=== PATIENT | female | born 1980 | race Caucasian/White ===

== ENCOUNTER 2019-12-15 12:07 | Emergency (ER) | payer OTHER ==
[~2019-12-15] VITALS: Ht 157.5 cm; Wt 76.2 kg
[2019-12-15 12:16] VITALS: BP 137/104
--- NOTE | 2019-12-15 13:09 | NUR ---
39/F BIB SELF C/O LEFT EAR PAIN 8/10 X3 DAYS. Pt cleaned ear "a little too much" on Saturday. Left ear pain has been getting worse. Per pt she always has issues with ears.
--- NOTE | 2019-12-15 13:32 | NUR ---
Patient being evaluated by REBA FLORES at bedside.
[2019-12-15 13:39] VITALS: BP 155/83
--- NOTE | 2019-12-15 13:39 | NUR ---
Patient discharged with v/s stable. Written and verbal after care instructions given and explained. Patient alert, oriented and verbalized understanding of instructions. Ambulatory with steady gait. All questions addressed prior to discharge. ID band removed. Patient advised to follow up with PMD. Rx of OFLOXACIN given. Patient educated on indication of medication including possible reaction and side effects. Opportunity to ask questions provided and answered.
== END 2019-12-15 13:39 | disposition home or self-care (01) ==
LOC: MED 12:07
DX: H60.92 Unspecified otitis externa, left ear (principal)
CPT/HCPCS: 99283